=== PATIENT | female | born 1950 | race Caucasian/White ===

== ENCOUNTER → 2016-12-29 | Outpatient (CLI) | payer MEDICARE ==
[2016-12-29 13:02] LABS: Basophils # (A) 0.1 k/uL (0-0.2); Basophils % (A) 1 %; CHCM 33.3; Eosinophils # (A) 0.6 k/uL (0-0.7); Eosinophils % (A) 9 %; HCT 42.8 % (34.0-46.0); HDW 2.44; HGB 13.7 gm/dL (11.4-16.0); Luc # (Auto) 0.13; Luc % (Auto) 2; Lymphocytes # (A) 1.9 k/uL (1.0-4.8); Lymphocytes % (A) 32 %; MCV 87.4 fL (80.0-100.0); Mean Platelet Volume 6.9; Monocytes # (A) 0.4 k/uL (0-1.0); Monocytes % (A) 7 %; Neutrophils % (A) 49 %; RDW 13.4 % (11.5-15.5); WBC 6.1 k/uL (3.8-10.6); WBC (Perox) 6.27
[2016-12-29 13:12] LABS: ALT 30 U/L (9-52); AST 18 U/L (14-36); Alkaline Phosphatase 91 U/L (38-126); Anion Gap 11 mmol/L; Blood Urea Nitrogen 16 mg/dL (7-17); Calcium 9.7 mg/dL (8.4-10.2); Carbon Dioxide 29 mmol/L (22-30); Chloride 101 mmol/L (98-107); Glucose 95 mg/dL (74-99); Non-African American GFR(MDRD) >60 (>60 ml/min/1.73 sqM); Potassium 4.3 mmol/L (3.5-5.1); Sodium 141 mmol/L (137-145); Total Bilirubin 0.7 mg/dL (0.2-1.3); Total Protein 7.5 g/dL (6.3-8.2)
[2017-01-08 16:05] LABS: Mis test requested (Blood) Vanadium Level
== END | disposition home or self-care (01) ==
LOC: LABWHC1 12:13
PROVIDERS: ATTEND Internal Medicine Infectious Disease
DX: R78.79 Finding of abnormal level of heavy metals in blood (principal)
CPT/HCPCS: 36415; 80053; 83018; 85025

== ENCOUNTER → 2017-04-14 | Outpatient (CLI) | payer MEDICARE ==
[2017-04-14 12:02] LABS: Basophils # (A) 0.1 k/uL (0-0.2); Basophils % (A) 1 %; CH 28.5; Eosinophils # (A) 0.6 k/uL (0-0.7); Eosinophils % (A) 10 %; HDW 2.44; HGB 13.6 gm/dL (11.4-16.0); Luc # (Auto) 0.13; Luc % (Auto) 2; Lymphocytes # (A) 1.7 k/uL (1.0-4.8); Lymphocytes % (A) 29 %; MCH 28.6 pg (25.0-35.0); MCV 86.6 fL (80.0-100.0); Mean Platelet Volume 6.3; Monocytes # (A) 0.4 k/uL (0-1.0); Monocytes % (A) 7 %; Neutrophils # (A) 2.8 k/uL (1.3-7.7); Neutrophils % (A) 50 %; RBC 4.74 m/uL (3.80-5.40); WBC 5.7 k/uL (3.8-10.6); WBC (Perox) 5.45
[2017-04-14 12:26] LABS: Appearance,Urine Clear (Clear); Bilirubin,Urine Negative (Negative); Glucose,Urine (UA) Negative (Negative); Ketones,Urine Negative (Negative); Leukocyte Esterase,Urine Moderate (Negative); Mucus,Urine Rare /hpf; Nitrite,Urine Negative (Negative); PH, Urine 5.5 (5.0-8.0); Particle Count 2759; Protein,Urine Negative (Negative); RBC,Urine 2 /hpf (0-5); Specific Gravity,Urine 1.013 (1.001-1.035); UA Billing (MACRO vs. MICRO) MICRO; Urobilinogen,Urine <2.0 mg/dL (<2.0); WBC,Urine 5 /hpf (0-5)
[2017-04-14 12:31] LABS: Anion Gap 9 mmol/L; Carbon Dioxide 30 mmol/L (22-30); Chloride 106 mmol/L (98-107); Glucose 93 mg/dL (74-99); Non-African American GFR(MDRD) >60 (>60 ml/min/1.73 sqM); Potassium 4.5 mmol/L (3.5-5.1); Sodium 145 mmol/L (137-145); Total Protein 7.3 g/dL (6.3-8.2); Triglycerides 117 mg/dL (<150); Uric Acid 4.9 mg/dL (3.7-7.4)
[2017-04-14 12:32] LABS: ALT 33 U/L (9-52); AST 25 U/L (14-36); Alkaline Phosphatase 90 U/L (38-126); Blood Urea Nitrogen 17 mg/dL (7-17); C Reactive Protein 6.6 mg/L (<10.0); Creatine Kinase 39 U/L (30-135); Magnesium 2.1 mg/dL (1.6-2.3); Total Bilirubin 0.5 mg/dL (0.2-1.3)
[2017-04-14 13:12] LABS: Vitamin B12 524 pg/mL
[2017-04-14 15:02] LABS: Erythrocyte Sedimentation Rate 36 mm/hr (0-20)
[2017-04-14 16:23] LABS: LDL Cholesterol, Direct 214.3 mg/dL (0.0-129.0)
[2017-04-14 16:57] LABS: ANA w/Reflex to Titer NEGATIVE (NEGATIVE)
[2017-04-15 15:30] LABS: Mis test requested (Blood) Lyme Ab w/Reflex
== END | disposition home or self-care (01) ==
LOC: LABWHC1 11:21
PROVIDERS: ATTEND Family Medicine
DX: Z00.00 Encounter for general adult medical examination without abnormal findings (principal); R53.82 Chronic fatigue, unspecified; I10 Essential (primary) hypertension; E78.5 Hyperlipidemia, unspecified; T56 Toxic effect of metals
CPT/HCPCS: 36415; 80053; 81001; 82550; 82607; 83018; 83721; 83735; 84165; 84439; 84443; 84478; 84550; 85025; 85652; 86038; 86140; 86618

== ENCOUNTER → 2017-05-20 | Outpatient (CLI) | payer MEDICARE ==
--- NOTE | 2017-05-21 07:52 | MM ---
Reason for exam: screening (asymptomatic). Last mammogram was performed 1 year ago. History: Patient is postmenopausal. Family history of breast cancer in grandmother at age 60. 2 benign cyst aspirations of the left breast. Taking other hormone for 1 year. Physical Findings: A clinical breast exam by your physician is recommended on an annual basis and results should be correlated with mammographic findings. MG Screening Mammo w CAD Bilateral CC and MLO view(s) were taken. Prior study comparison: May 19, 2016, bilateral MG screening mammo w CAD. April 18, 2015, bilateral MG screening mammo w CAD. January 20, 2014, bilateral digital screening mammo w/CAD. There are scattered fibroglandular densities. There is no discrete abnormality. ASSESSMENT: Negative, BI-RAD 1 RECOMMENDATION: Routine screening mammogram of both breasts in 1 year.
== END | disposition home or self-care (01) ==
LOC: RADMAMWWP 12:59
PROVIDERS: ATTEND Family Medicine
DX: Z12.31 Encounter for screening mammogram for malignant neoplasm of breast (principal); M89.9 Disorder of bone, unspecified; Z78.0 Asymptomatic menopausal state

== ENCOUNTER → 2017-06-18 | Outpatient (CLI) | payer MEDICARE ==
--- NOTE | 2017-06-18 13:51 | BD ---
EXAMINATION TYPE: MG DEXA axial skeleton. DATE OF EXAM: 06/18/2017 COMPARISON: 09.08.2005 CLINICAL HISTORY: Z78.0 POST MENOPAUSAL W/O HRT Height: 62.5 Weight: 160 FRAX RISK QUESTIONS: Alcohol (3 or more units per day): NO Family History (Parent hip fracture): NO Glucocorticoids (More than 3mos): NO (Ex: prednisone, prednisolone, methylprednisolone, dexamethasone, and hydrocortisone). History of Fracture in Adulthood: NO Secondary Osteoporosis: NO 1. Type 1 Diabetes: NO 2. Hyperthyroidism: NO 3. Menopause before 45: YES 4. Malnutrition: NO 5. Chronic liver disease: NO Rheumatoid Arthritis: NO Current Tobacco Use: NO RISK FACTORS HISTORY OF: Family History of Osteoporosis: NO Active: YES Diet low in dairy products/other sources of calcium: YES, LOW, LACTOSE INTOLERANT Postmenopausal woman: HYST AT AGE 31 Lost more than 2 inches in height since high school: NO Hyperparathyroidism: NO Adrenal Insufficiency: NO MEDICATIONS: Thyroid Medications: YES SYNTHROID How Lon YRS Additional Medications: VITAMIN D, MULTI VIT WITH CALCIUM, BP MEDS, ZOLOFT, REFLUX MEDS, STATINS FOR CHOLESTEROL Additional History: RIGHT TKR, OSTEO ARTHRITIS EXAM MEASUREMENTS: Bone mineral densitometry was performed using the [employer] System. Bone mineral density as measured about the Lumbar spine is: ----- L1-L4(G/cm2): 1.063 T Score Values are as follows: ----- L1: -1.5 ----- L2: -1.8 ----- L3: -0.4 ----- L4: -0.7 ----- L1-L4: -1.0 Bone mineral density has: Decreased -10.7% since study of: 09.08.2005 Bone mineral density about the R hip (g/cm2): 0.910 Bone mineral density about the L hip (g/cm2): 0.970 T Score values are as follows: -----R Neck: -1.2 -----L Neck: -1.1 -----R Total: -0.8 -----L Total: -0.3 Bone mineral density has: Decreased -13.4% since study of: 09.08.2005 FRAX%'S: THERE IS A 8.5% CHANCE OF A MAJOR OSTEOPOROTIC FX AND A 0.8% CHANCE FOR HIP FX.....PROB ABILITY IN 10 YRS TIME IMPRESSION: Osteopenia (T Score between -2.5 and -1 as noted by T score values There is slightly increased risk of fracture and the patient may be considered for treatment. Re-Screen 2-5 years FOR BOTH OF HER HIPS AND LUMBAR SPINE. NOTE: T-SCORE=SD OF THE YOUNG ADULT MEAN.
== END | disposition home or self-care (01) ==
LOC: RADBDWWP 09:59
PROVIDERS: ATTEND Family Medicine
DX: M85.80 Other specified disorders of bone density and structure, unspecified site (principal); Z78.0 Asymptomatic menopausal state
CPT/HCPCS: 77080

== ENCOUNTER → 2017-09-17 | Outpatient (CLI) | payer MEDICARE ==
[2017-09-17 13:16] LABS: Basophils # (A) 0.1 k/uL (0-0.2); Basophils % (A) 1 %; CH 28.7; CHCM 32.7; Eosinophils # (A) 0.5 k/uL (0-0.7); Eosinophils % (A) 7 %; HCT 43.7 % (34.0-46.0); HDW 2.42; HGB 13.9 gm/dL (11.4-16.0); Luc # (Auto) 0.14; Luc % (Auto) 2; Lymphocytes % (A) 30 %; MCH 28.1 pg (25.0-35.0); MCHC 31.9 g/dL (31.0-37.0); MCV 87.9 fL (80.0-100.0); Mean Platelet Volume 6.4; Monocytes # (A) 0.5 k/uL (0-1.0); Monocytes % (A) 7 %; Neutrophils # (A) 3.7 k/uL (1.3-7.7); Neutrophils % (A) 53 %; RBC 4.97 m/uL (3.80-5.40); RDW 13.3 % (11.5-15.5); WBC 6.9 k/uL (3.8-10.6); WBC (Perox) 7.03
[2017-09-17 14:00] LABS: ALT 33 U/L (9-52); AST 21 U/L (14-36); Alkaline Phosphatase 81 U/L (38-126); Anion Gap 9 mmol/L; Blood Urea Nitrogen 20 mg/dL (7-17); C Reactive Protein 5.9 mg/L (<10.0); Calcium 10.2 mg/dL (8.4-10.2); Carbon Dioxide 30 mmol/L (22-30); Chloride 103 mmol/L (98-107); Cholesterol 204 mg/dL (<200); Creatine Kinase 47 U/L (30-135); Glucose 91 mg/dL (74-99); HDL Cholesterol 54 mg/dL (40-60); Non-African American GFR(MDRD) >60 (>60 ml/min/1.73 sqM); Potassium 4.7 mmol/L (3.5-5.1); Sodium 142 mmol/L (137-145); Total Bilirubin 0.5 mg/dL (0.2-1.3); Total Protein 7.7 g/dL (6.3-8.2)
[2017-09-17 15:26] LABS: Erythrocyte Sedimentation Rate 34 mm/hr (0-20)
[2017-09-22 13:36] LABS: Alternaria alternata IgE <0.35 kU/L (<0.35); Asperg. fumagatus IgE <0.35 kU/L (<0.35); Asperg. fumagatus IgE Class CLASS 0; Birch(Com.Silvr) IgE Class CLASS 0; Cat Epith & Dander IgE <0.35 kU/L (<0.35); Cat Epith & Dander IgE Class CLASS 0; Clad herbarum IgE <0.35 kU/L (<0.35); Clad herbarum IgE Class CLASS 0; Common Ragweed IgE Class CLASS 0; Dermato. Pteronyssinus Class CLASS 0; Dermato. Pteronyssinus IgE <0.35 kU/L (<0.35); Dermato. farinae IgE <0.35 kU/L (<0.35); Dermato. farinae IgE Class CLASS 0; IgE (Allergen) 67.9 IU/mL (<114.0); Maple (Box Elder) IgE <0.35 kU/L (<0.35); Maple (Box Elder) IgE Class CLASS 0; Mountain Cedar IgE <0.35 kU/L (<0.35); Mountain Cedar IgE Class CLASS 0; Mouse Urine IgE Class CLASS 0; Mouse Urine Proteins,IgE <0.35 kU/L (<0.35); Mulberry IgE Class CLASS 0; Nettle IgE <0.35 kU/L (<0.35); Nettle IgE Class CLASS 0; Oak IgE <0.35 kU/L (<0.35); Penicillium notatum IgE Class CLASS 0; Rough Marshelder IgE <0.35 kU/L (<0.35); Rough Marshelder IgE Class CLASS 0; Timothy Grass IgE <0.35 kU/L (<0.35); Timothy Grass IgE Class CLASS 0; White Ash IgE Class CLASS 0
[2017-09-23 15:07] LABS: Mis test requested (Blood) Vanadium Level
[2017-09-23 16:45] LABS: Alternaria Alternata IgG 7.2 mcg/mL (< 13.6); Cladosporium herbarium IgG 48.1 mcg/mL (< 14.7); Phoma ssp. IgG 11.2 mcg/mL (< 6.6); Saccaharomospora viridis Not detected (Not detected); Saccaharopoly. rectivirgula Not detected (Not detected)
== END ==
LOC: LABWHC1 12:17
PROVIDERS: ATTEND Family Medicine
DX: I10 Essential (primary) hypertension (principal); M94.0 Chondrocostal junction syndrome [Tietze]; R53.82 Chronic fatigue, unspecified; T56.89 Toxic effects of other metals
CPT/HCPCS: 36415; 80053; 80061; 82103; 82550; 82607; 82785; 83018; 83735; 84443; 85025; 85652; 86001; 86003; 86140; 86606; 86609

== ENCOUNTER → 2017-11-25 | Outpatient (CLI) | payer MEDICARE ==
--- NOTE | 2017-11-25 17:10 | XR ---
EXAMINATION TYPE: XR chest 2V DATE OF EXAM: 11/25/2017 COMPARISON: 01/17/2014 HISTORY: Chest pain TECHNIQUE: Frontal and lateral views of the chest are obtained. FINDINGS: There is no heart failure nor confluent pneumonic infiltrate. There are some coarsening of interstitial markings in the mid and lower lung pittman. There is no pleural effusion. Bony thorax is intact. IMPRESSION: Mild pulmonary fibrotic changes that have progressed compared to old exam. No heart fail ure.
== END | disposition home or self-care (01) ==
LOC: RADXRMAIN 16:30
PROVIDERS: ATTEND Family Medicine
DX: J84.10 Pulmonary fibrosis, unspecified (principal)
CPT/HCPCS: 71046

== ENCOUNTER → 2017-11-27 | Outpatient (CLI) | payer MEDICARE ==
--- NOTE | 2017-11-27 09:42 | CT ---
EXAMINATION TYPE: CT angio chest DATE OF EXAM: 11/27/2017 COMPARISON: 02/02/2014 HISTORY: 67-year-old female Cough, Lt sided chest pain TECHNIQUE: Contiguous axial scanning of the chest performed with IV Contrast, patient injected with 1 00 mL of Omnipaque 350. Coronal/sagittal MIP reconstructions performed. CT DLP: 212.3 mGycm Automated exposure control for dose reduction was used. FINDINGS: Heart is upper limits of normal in size with trace pericardial fluid. Aorta normal caliber with conventional arch vessel branching anatomy. No thoracic lymphadenopathy by CT size criteria. Satisfactory opacification of the pulmonary arterial system. Mild respiratory motion artifacts causin g some limitation. No evidence for pulmonary embolus within this limitation. Mild biapical pleural-parenchymal scarring. There is [id number] diffuse bronchial wall thickeni ng noted. Dependent atelectasis. No consolidation or pleural effusion. Visualized upper abdomen shows no gross abnormal mobility. Bones: Endplate spondylosis mid to lower thoracic spine. IMPRESSION: 1. NO EVIDENCE FOR PULMONARY EMBOLUS. 2. BORDERLINE CARDIOMEGALY. CORRELATE WITH PATIENT'S CARDIAC FUNCTION. 3. MILD TO MODERATE BRONCHIAL WALL THICKENING COULD REPRESENT BRONCHITIS OR CHRONIC ASTHMA.
== END | disposition home or self-care (01) ==
LOC: RADCTMAIN 08:59
PROVIDERS: ATTEND Family Medicine
DX: J98.09 Other diseases of bronchus, not elsewhere classified (principal); I51.7 Cardiomegaly; R09.1 Pleurisy; R06.02 Shortness of breath
CPT/HCPCS: 71275; Q9967

== ENCOUNTER → 2018-01-21 | Outpatient (CLI) | payer MEDICARE | END | disposition home or self-care (01) | LOC: LABWHC1 15:37 | PROVIDERS: ATTEND Internal Medicine Infectious Disease | DX: R79.0 Abnormal level of blood mineral (principal) | CPT/HCPCS: 36415 ==

== ENCOUNTER → 2018-11-22 | Outpatient (CLI) | payer MEDICARE | END | disposition home or self-care (01) | LOC: LABWHC1 14:14 | PROVIDERS: ATTEND Internal Medicine | DX: R78.79 Finding of abnormal level of heavy metals in blood (principal) | CPT/HCPCS: 36415 ==

== ENCOUNTER → 2019-01-24 | Outpatient (CLI) | payer MEDICARE ==
[2019-01-24 14:52] LABS: Anisocytosis Slight; Basophils % (A) 0 %; Eosinophils % (A) 0 %; HCT 41.6 % (34.0-46.0); HGB 13.4 gm/dL (11.4-16.0); Lymphocytes # (A) 1.8 k/uL (1.0-4.8); Lymphocytes % (A) 15 %; MCH 26.8 pg (25.0-35.0); MCHC 32.1 g/dL (31.0-37.0); MCV 83.4 fL (80.0-100.0); Mean Platelet Volume 6.8; Monocytes # (A) 0.6 k/uL (0-1.0); Monocytes % (A) 5 %; Neutrophils # (A) 9.5 k/uL (1.3-7.7); Neutrophils % (A) 79 %; Platelet Count 341 k/uL (150-450); RDW 16.9 % (11.5-15.5)
[2019-01-24 18:32] LABS: C Reactive Protein <0.4 mg/dL (0.0-0.8); Calcium 9.8 mg/dL (8.7-10.3); Chloride 105 mmol/L (96-109); Glucose 112 mg/dL (70-110); Potassium 4.1 mmol/L (3.5-5.5); Sodium 141 mmol/L (135-145)
[2019-01-24 19:02] LABS: Erythrocyte Sedimentation Rate 18 mm/hr (0-20)
[2019-01-24 19:38] LABS: Hemoglobin A1C 6.5 % (4.0-6.0)
== END | disposition home or self-care (01) ==
LOC: LABWHC1 14:17
PROVIDERS: ATTEND Family Medicine
DX: R73.01 Impaired fasting glucose (principal); I10 Essential (primary) hypertension; R51 Headache
CPT/HCPCS: 36415; 80048; 83036; 85025; 85652; 86140

== ENCOUNTER → 2019-04-27 | Outpatient (CLI) | payer MEDICARE ==
[2019-04-27 14:06] LABS: Basophils % (A) 0 %; Eosinophils % (A) 0 %; HCT 43.7 % (34.0-46.0); HGB 13.7 gm/dL (11.4-16.0); Lymphocytes # (A) 1.4 k/uL (1.0-4.8); Lymphocytes % (A) 16 %; MCH 28.6 pg (25.0-35.0); MCHC 31.4 g/dL (31.0-37.0); MCV 91.1 fL (80.0-100.0); Mean Platelet Volume 6.9; Monocytes # (A) 0.3 k/uL (0-1.0); Monocytes % (A) 3 %; Neutrophils % (A) 80 %; Platelet Count 355 k/uL (150-450); RBC 4.79 m/uL (3.80-5.40); WBC 8.7 k/uL (3.8-10.6)
[2019-04-27 15:14] LABS: Erythrocyte Sedimentation Rate 18 mm/hr (0-20)
[2019-04-27 19:51] LABS: Hemoglobin A1C 6.2 % (4.0-6.0)
[2019-04-27 19:56] LABS: ALT 38 U/L (8-44); AST 22 U/L (13-35); African American GFR (CKD) 76.1 (60.0-200.0); Albumin/Globulin Ratio 1.96 (1.60-3.17); Alkaline Phosphatase 73 U/L (41-126); BUN/Creat Ratio 18.89 Ratio (12.00-20.00); C Reactive Protein <0.4 mg/dL (0.0-0.8); Calcium 10.1 mg/dL (8.7-10.3); Carbon Dioxide 28.8 mmol/L (21.6-31.8); Chloride 105 mmol/L (96-109); Globulin 2.3 g/dL (1.6-3.3); Glucose 110 mg/dL (70-110); Potassium 4.9 mmol/L (3.5-5.5); Sodium 144 mmol/L (135-145); Total Bilirubin 0.5 mg/dL (0.3-1.2); Total Protein 6.8 g/dL (6.2-8.2)
== END | disposition home or self-care (01) ==
LOC: LABWHC1 12:21
PROVIDERS: ATTEND Family Medicine
DX: J45.901 Unspecified asthma with (acute) exacerbation (principal); R94.39 Abnormal result of other cardiovascular function study; R06.00 Dyspnea, unspecified; T56 Toxic effect of metals
CPT/HCPCS: 36415; 80053; 83036; 84439; 84443; 84484; 85025; 85652; 86140

== ENCOUNTER → 2019-07-06 | Outpatient (CLI) | payer MEDICARE ==
--- NOTE | 2019-07-07 10:45 | MM ---
Reason for exam: screening (asymptomatic). Last mammogram was performed 2 years and 2 months ago. History: Patient is postmenopausal. Family history of breast cancer in grandmother at age 60. 2 benign cyst aspirations of the left breast. Taking other hormone for 1 year. Physical Findings: A clinical breast exam by your physician is recommended on an annual basis and results should be correlated with mammographic findings. MG Screening Mammo w CAD Bilateral CC and MLO view(s) were taken. Prior study comparison: May 20, 2017, bilateral MG screening mammo w CAD. May 19, 2016, bilateral MG screening mammo w CAD. There are scattered fibroglandular densities. No suspicious abnormality. No significant changes when compared with prior studies. ASSESSMENT: Negative, BI-RAD 1 RECOMMENDATION: Routine screening mammogram of both breasts in 1 year.
== END | disposition home or self-care (01) ==
LOC: RADMAMWWP 15:57
PROVIDERS: ATTEND Family Medicine
DX: Z12.31 Encounter for screening mammogram for malignant neoplasm of breast (principal)
CPT/HCPCS: 77067

== ENCOUNTER → 2019-07-28 | Outpatient (CLI) | payer MEDICARE ==
--- NOTE | 2019-07-28 11:41 | BD ---
EXAMINATION TYPE: Axial Bone Density DATE OF EXAM: 07/28/2019 COMPARISON: NONE CLINICAL HISTORY: Height: 5 FT 2 1/2 IN Weight: 175 FRAX RISK QUESTIONS: Glucocorticoids (More than 3mos): YES (Ex: prednisone, prednisolone, methylprednisolone, dexamethasone, and hydrocortisone). History of Fracture in Adulthood: YES Secondary Osteoporosis: 3. Menopause before 45: YES RISK FACTORS HISTORY OF: Family History of Osteoporosis: YES Active: YES Postmenopausal woman: TOTAL HYST AGE 31 MEDICATIONS: Prednisone or other steroids: YES How Long: SINCE OCTOBER 2018 Additional Medications: PRENISONE, MONTELUKAST, PANTOPRAZOLE, LOSARTAN, SIMVASTATIN, FASENRA SHOT, NI TROSTAT, FUROSEMIDE, D3,PERFOROMIST, BUDESONIDE, ALBUTEROL Additional History: TEMPORALITIS NERVE DIAG OCT 2018 EXAM MEASUREMENTS: Bone mineral densitometry was performed using the [employer] System. Bone mineral density as measured about the Lumbar spine is: ----- L1-L4(G/cm2): 1.060 T Score Values are as follows: ----- L2: -1.6 ----- L3: -0.9 ----- L4: -0.2 ----- L1-L4: -1.0 Bone mineral density has: INCREASED 0.6 % since study of: 2016 Bone mineral density about the R hip (g/cm2): 0.841 Bone mineral density about the L hip (g/cm2): 0.869 T Score values are as follows: -----R Neck: -1.4 -----L Neck: -1.2 -----R Total: -1.1 -----L Total: -0.8 Bone mineral density has: DECREASED -5.2 % since study of: 2017 IMPRESSION: Findings compatible with osteopenia. NOTE: T-SCORE=SD OF THE YOUNG ADULT MEAN.
== END | disposition home or self-care (01) ==
LOC: RADBDWWP 11:05
PROVIDERS: ATTEND Family Medicine
DX: M89.9 Disorder of bone, unspecified (principal); Z79.52 Long term (current) use of systemic steroids
CPT/HCPCS: 77080

== ENCOUNTER → 2020-10-22 | Outpatient (CLI) | payer MEDICARE ==
--- NOTE | 2020-10-23 13:19 | MM ---
Reason for exam: screening (asymptomatic). Last mammogram was performed 1 year and 4 months ago. History: Patient is postmenopausal. Family history of breast cancer in grandmother at age 60. 2 benign cyst aspirations of the left breast. Taking other hormone for 1 year. Physical Findings: A clinical breast exam by your physician is recommended on an annual basis and results should be correlated with mammographic findings. MG Screening Mammo w CAD Bilateral CC and MLO view(s) were taken. Prior study comparison: July 06, 2019, bilateral MG screening mammo w CAD. May 20, 2017, bilateral MG screening mammo w CAD. No significant changes when compared with prior studies. ASSESSMENT: Benign, BI-RAD 2 RECOMMENDATION: Routine screening mammogram of both breasts in 1 year.
== END | disposition home or self-care (01) ==
LOC: RADMAMWWP 14:02
PROVIDERS: ATTEND Family Medicine
DX: Z12.31 Encounter for screening mammogram for malignant neoplasm of breast (principal); Z80.3 Family history of malignant neoplasm of breast
CPT/HCPCS: 77067

== ENCOUNTER 2021-01-03 08:58 | Day surgery (SDC) | payer MEDICARE ==
[2020-12-31 13:07] VITALS: BMI 31.5
[~2021-01-03 08:58] MED LIST: LACTATED RINGERS 1,000 ML IV SCH
[2021-01-03 09:14] VITALS: TEMP 98.3
[2021-01-03] MEDS ORDERED: MIDAZOLAM 2 MG/2 ML VIAL ONE (09:31)
[2021-01-03] MEDS ORDERED: fentaNYL (PF) 50 MCG/ML 2 ML AMP ONE (09:31)
--- NOTE | 2021-01-03 09:48 | P.PCN ---
Date of Procedure: 01/03/21 Description of Procedure: Procedure: Lumbar Puncture . Preoperative Diagnoses: rule out M.S Postoperative Diagnosis: rule out M.S Anesthesia: IV sedation with Versed, fentanyl and local Condition: stable. Complications: none. Description of the procedure: Patient was consented in the preoperative area we discussed the risks benefits and alternatives to the procedure. The patient was Brought the patient into the procedure room and she was placed in the left lateral decubitus position. The back was cleansed with ChloraPrep. The L3-L4 level was palpated. At that point lidocaine 1% was used to anesthetize the skin, total of 5 mL was used. A 22 gauge spinal needle was advanced until spinal fluid was aspirated through the needle and a three - way stop cock. Opening pressure was 14.. CSF was obtained and sent off to laboratory for examination. The closing pressure was 12. Band- Aid was placed after the procedure the patient was instructed to lay flat for the next few hours. The patient was discharged from the PACU in stable condition.
[2021-01-03] MEDS ORDERED: IV FLUID CONTINUATION 1,000 ML IV ONE (09:58)
[2021-01-03 10:01] VITALS: RESP 16
[2021-01-03 10:15] LABS: ALT 26 U/L (4-34); AST 25 U/L (14-36)
[2021-01-03 10:33] LABS: T4, Free (Free Thyroxine) 0.97 ng/dL (0.78-2.19)
[2021-01-03 11:13] VITALS: BP 113/66; PULSE 61
[2021-01-03 12:03] LABS: Glucose,CSF 56 mg/dL (40-70); Total Protein,CSF 65 mg/dL (12-60)
[2021-01-03 12:33] LABS: Appearance,CSF Clear
[2021-01-03 12:34] LABS: CSF Tube Number 4; CSF Tube Volume 2.2; Nucleated Cells, CSF 0 u/L (0-5); Red Blood Cell,CSF 0 u/L (0-10)
[2021-01-03 19:34] LABS: Anti-DNA, DS unit <1.0 IU/mL; Anti-Smith Ab Interp NEGATIVE (NEGATIVE); DNA Double-Stranded NEGATIVE (NEGATIVE)
[2021-01-04 00:27] LABS: Rheumatoid Factor, Qnt <4 IU/mL (0-15)
[2021-01-04 10:43] LABS: Angiotensin-1 Converting Enz. 33 U/L (8-52)
[2021-01-04 11:53] LABS: VDRL, Qualitative CSF Nonreactive (Nonreactive)
[2021-01-07 12:40] LABS: IgG - CSF 2.5 mg/dL (0.0 - 3.4); IgG/Albumin Index (CSF) 0.45 (0.00 - 0.77); Immunoglobulin G 837 mg/dL (700 - 1600)
== END 2021-01-03 11:17 | disposition home or self-care (01) ==
LOC: ORPAIN 08:58
PROVIDERS: ATTEND Hospitalist
DX: R53.1 Weakness (principal); Z91.048 Other nonmedicinal substance allergy status; Z91.09 Other allergy status, other than to drugs and biological substances
CPT/HCPCS: 62270; 82040; 82042; 82164; 82784; 82945; 83873; 83916; 84157; 84439; 84443; 84450; 84460; 86038; 86225; 86235; 86431; 86592; 86618; 87801; 88108; 89050

== ENCOUNTER → 2021-02-27 | Outpatient (CLI) | payer MEDICARE ==
[2021-02-27 11:06] VITALS: BP 161/100; PULSE 74; RESP 18; TEMP 98.4
--- NOTE | 2021-02-27 11:25 | P.PAINCN ---
History of Present Illness - Reason for Consult Consult date: 02/27/21 - History of Present Illness This is 70 years old female with a chronic history of severe neck pain and headaches started 2 years ago, she denies any initiating event and the symptom is constant, increases with activity, radiates from the base of the skull spelled the top, she was diagnosed with occipital neuralgia , and Annie Yi referred her to have bilateral occipital nerve block, patient denies, any visual changes she denies any motor or sensory deficit ,she denies any change in the bowel movement or urination, Past Medical History Past Medical History: CVA/TIA, Hyperlipidemia, Hypertension, Osteoarthritis (OA) Additional Past Medical History / Comment(s): received 1rst covid vaccine, kidney stones , temporal nerve problem History of Any Multi-Drug Resistant Organisms: None Reported Past Surgical History: Heart Catheterization, Hysterectomy, Joint Replacement, Orthopedic Surgery Additional Past Surgical History / Comment(s): left shoulder surgery, left thumb surgery, total right knee replacement,left temporal biopsy , colonoscopy, Past Anesthesia/Blood Transfusion Reactions: No Reported Reaction Past Psychological History: Anxiety Smoking Status: Never smoker Past Alcohol Use History: None Reported Past Drug Use History: None Reported - Past Family History Mother Family Medical History: Cancer Additional Family Medical History / Comment(s): kidney cancer Father Family Medical History: Cancer Medications and Allergies Home Medications Medication Instructions Recorded Confirmed Type Ascorbic Acid [Vitamin C] 500 mg PO DAILY 12/31/20 02/21/21 History Aspirin EC [Ecotrin Low Dose] 81 mg PO DAILY 12/31/20 02/21/21 History Cetirizine HCl [Zyrtec] 10 mg PO DAILY 12/31/20 02/21/21 History Cholecalciferol [Vitamin D3 (25 50 mcg PO DAILY 12/31/20 02/21/21 History Mcg = 1000 Iu)] Cyanocobalamin (Vitamin B-12) 1,200 mcg PO DAILY 12/31/20 02/21/21 History [Vitamin B-12] Escitalopram [Lexapro] 20 mg PO DAILY 12/31/20 02/21/21 History Ezetimibe [Zetia] 10 mg PO 1300 12/31/20 02/21/21 History Fasenra Unknown Dose 1 dose SQ Q60D 12/31/20 02/21/21 History Losartan [Cozaar] 50 mg PO DAILY 12/31/20 02/21/21 History Montelukast [Singulair] 10 mg PO DAILY 12/31/20 02/21/21 History Multivitamins, Thera [Multivitamin 1 tab PO DAILY 12/31/20 02/21/21 History (formulary)] Omalizumab [Xolair] 75 mg SQ Q60D 12/31/20 02/21/21 History [place]-3 Fatty Acids/Fish Oil [Fish 1 each PO DAILY 12/31/20 02/21/21 History Oil 1,000 mg Softgel] Omeprazole 40 mg PO 1800 12/31/20 02/21/21 History Vitamin E 400 unit PO DAILY 12/31/20 02/21/21 History predniSONE 10 mg PO DAILY 12/31/20 02/21/21 History Allergies Allergy/AdvReac Type Severity Reaction Status Date / Time adhesive tape Allergy Rash/Hives Verified 02/21/21 16:04 Iodine and Iodide Containing Allergy Rash/Hives Verified 02/21/21 16:04 Produc Physical Exam Vitals: Vital Signs Temp Pulse Resp BP Pulse Ox 02/27/21 11:02 98.4 F 74 18 161/100 96 Physical Examinations : -Constitutiona : Cooperative , not in acute distress . -HEENT : nech : supple , no Lymphadenopathy , normal thyroid size . : eyes : no ptosis , no icterus, no photophobia . - neurologic : Cranial nerve II to XII intact , no focal neurological deffecit . -psychatric : alert , oriented X 3 , appropriate affect , intact judgment and insight . -Lymphatic : no Lymphadenopathy . - musculoskeltal : Cervical Spine motor stregnth in the deltoid and biceps, normal right side , normal Left side motor stregnth biceps and the wrist extensors normal right side ,normal left side . motor stregnth in the triceps muscle . normal Right side , normal Left side deep tendon reflexes normal at the biceps , normal at Brachioradialis , normal at triceps. cervical facet loading test: Positive Bilaterally Severe tenderness over the occipital nerve location bilaterally L >R Lumber spine moter stegnth lower extremities ,thigh and legs 5/5 Right side , 5/5 Left side Assessment and Plan Plan: Assessment and plan=1-bilateral occipital neuralgia. 2-cervicogenic headache. Patient could benefit from bilateral greater occipital nerve block, procedure risk and benefits and alternatives discussed with the patient she agreed with proceeding Time with Patient: Greater than 30 PQRS Measure Charge Sheet Measure #130: Documentation of Current Meds in Medical Chart: Patient's medications documented in chart Measure #226: Tobacco Use: Screen & Cessation Intervention: Pt not a tobacco user Measure #111: Pneumonia Vaccination: Pneumococcal vaccine administered or previously received Measure #47: Advance Care Plan: Advance care planning discussed & documented, pt chose/unable to give Measure #412: Opioid Treatment Agreement: No documentation of signed opioid treatment agreement Measure #408: Opioid Therapy Follow-up Evaluation: Patient had NO f/u eval minimum every 3 months during opioid therapy Measure #317: Preventitive Care & Scrn High Bld Press & F/U: Pre-hypertensive or hypertensive BP documented, pt will f/u with PCP Measure #128: Body Mass Index (BMI) Screening & Follow-up: BMI documented ABOVE normal parameters - f/u documented Measure #131: Pain Assessment & Follow-up: Pain positive & plan documented, Follow-up scheduled Measure #431: Unhealthy Alcohol Use Preventative Care & Scrn: Patient not identified as an unhealthy alcohol user PQRS Narrative: Blood Pressure 161/100 Pain Intensity [Neck] 5 Scale Used Numeric (1 - 10) Hx Alcohol Use (MH) No Home Medications: Ambulatory Orders Ascorbic Acid [Vitamin C] 500 mg PO DAILY 12/31/20 Aspirin EC [Ecotrin Low Dose] 81 mg PO DAILY 12/31/20 Cetirizine HCl [Zyrtec] 10 mg PO DAILY 12/31/20 Cholecalciferol [Vitamin D3 (25 Mcg = 1000 Iu)] 50 mcg PO DAILY 12/31/20 Cyanocobalamin (Vitamin B-12) [Vitamin B-12] 1,200 mcg PO DAILY 12/31/20 Escitalopram [Lexapro] 20 mg PO DAILY 12/31/20 Ezetimibe [Zetia] 10 mg PO 1300 12/31/20 Fasenra Unknown Dose 1 dose SQ Q60D 12/31/20 Losartan [Cozaar] 50 mg PO DAILY 12/31/20 Montelukast [Singulair] 10 mg PO DAILY 12/31/20 Multivitamins, Thera [Multivitamin (formulary)] 1 tab PO DAILY 12/31/20 Omalizumab [Xolair] 75 mg SQ Q60D 12/31/20 [place]-3 Fatty Acids/Fish Oil [Fish Oil 1,000 mg Softgel] 1 each PO DAILY 12/31/20 Omeprazole 40 mg PO 1800 12/31/20 Vitamin E 400 unit PO DAILY 12/31/20 predniSONE 10 mg PO DAILY 12/31/20
== END ==
LOC: PNWHC3 10:45
PROVIDERS: ATTEND Specialist
DX: E78.5 Hyperlipidemia, unspecified (principal); I10 Essential (primary) hypertension; F41.9 Anxiety disorder, unspecified; M54.81 Occipital neuralgia; G44.89 Other headache syndrome
CPT/HCPCS: 99211

== ENCOUNTER 2021-03-19 07:28 | Day surgery (SDC) | payer MEDICARE ==
[2021-03-19] MEDS ORDERED: LACTATED RINGERS 1,000 ML IV SCH ×2 (07:30→08:15)
[2021-03-19 07:44] VITALS: TEMP 97.9
[2021-03-19] MEDS ORDERED: methylPREDNISolone ACETATE 40 MG/ML 1 ML VIAL ONE (08:09)
[2021-03-19] MEDS ORDERED: MIDAZOLAM 2 MG/2 ML VIAL ONE (08:09)
[2021-03-19] MEDS ORDERED: fentaNYL (PF) 50 MCG/ML 2 ML AMP ONE (08:09)
[2021-03-19] MEDS ORDERED: ROPIVACAINE 5MG/ML 20ML VIAL ONE (08:09)
[2021-03-19] MEDS ORDERED: IV FLUID CONTINUATION 1,000 ML IV ONE (08:25)
[2021-03-19 08:29] VITALS: PULSE 76
[2021-03-19 08:39] VITALS: BP 115/73; RESP 16
--- NOTE | 2021-03-19 10:46 | P.PCN ---
Date of Procedure: 03/19/21 Preoperative Diagnosis: Occipital neuralgia Postoperative Diagnosis: Occipital neuralgia Procedure(s) Performed: Bilateral greater occipital nerve block Anesthesia: MAC Surgeon: Penelope Martinez Estimated Blood Loss (ml): 0 IV fluids (ml): 100 Pathology: none sent Condition: stable Disposition: PACU Description of Procedure: Indications for Procedure: The patient has been suffering from chronic headache. Procedure and Findings: The patient was seen and examined and written informed consent was obtained after explaining the risks, benefits and alternative of the procedure to the patient. As per physician request for anxiety IV was started in the preoperative holding area for sedation. The patient was positioned in the sitting position with the head slightly flexed and forehead rested on a pillow. By palpation, the external occipital pro tuberance and mastoid process were identified and mid point in between was located. The target point for greater occipital nerve was just medial to the occipital artery pulsation. The skin preparation was done with ChloraPrep X1 and sterile technique was observed throughout the procedure. A 25-guage, 1.5 inch needle was used for the procedure. A 25-gauge 1.5 inch needle was placed vertically downward, bony contact was obtained, negative aspiration was confirmed and 5 ml solution was injected. The needle was redirected little medially and laterally in a fanning fashion and addition medication was injected after negative aspiration. An bed procedure repeated on the other side. For each greater occipital nerve 5 ml of block solution used. The block solution containing 0.5% preservative-free bupivacaine 9 mL +40 MG of Depo-Medrol. The needle was removed, needle puncture sites were cleaned and pressure was applied. The patient tolerated the procedure very well. Disposition: Patient transferred to recovery under stable conditions. Patient was given discharge instructions regarding any bleeding, infection, fever, worsening headaches recommended to call her pain clinic during regular hours, after hours patient recommended to go to the nearest emergency. Patient was examined routinely by RN before discharging home. Patient was given discharge instructions to follow up with pain clinic in 4 weeks duration.
== END 2021-03-19 08:55 | disposition home or self-care (01) ==
LOC: ORPAIN 07:28
DX: M54.81 Occipital neuralgia (principal); N95.9 Unspecified menopausal and perimenopausal disorder; I10 Essential (primary) hypertension; Z98.890 Other specified postprocedural states; Z91.048 Other nonmedicinal substance allergy status; Z91.09 Other allergy status, other than to drugs and biological substances
CPT/HCPCS: 64405; J2250; J1030; J3010; J2795

== ENCOUNTER → 2021-10-29 | Outpatient (CLI) | payer MEDICARE ==
--- NOTE | 2021-11-04 11:32 | MM ---
Reason for exam: screening (asymptomatic). Last mammogram was performed 1 year ago. History: Patient is postmenopausal. Family history of breast cancer in grandmother at age 60. 2 benign cyst aspirations of the left breast. Taking other hormone for 1 year. Physical Findings: A clinical breast exam by your physician is recommended on an annual basis and results should be correlated with mammographic findings. MG Screening Mammo w CAD Bilateral CC and MLO view(s) were taken. Prior study comparison: October 22, 2020, bilateral MG screening mammo w CAD. July 06, 2019, bilateral MG screening mammo w CAD. There are scattered fibroglandular densities. No significant changes when compared with prior studies. ASSESSMENT: Negative, BI-RAD 1 RECOMMENDATION: Routine screening mammogram of both breasts in 1 year.
== END | disposition home or self-care (01) ==
LOC: RADMAMWWP 11:22
PROVIDERS: ATTEND Family Medicine
DX: Z12.31 Encounter for screening mammogram for malignant neoplasm of breast (principal); Z78.0 Asymptomatic menopausal state; Z80.3 Family history of malignant neoplasm of breast
CPT/HCPCS: 77067

== ENCOUNTER → 2022-05-23 | Outpatient (CLI) | payer MEDICARE ==
--- NOTE | 2022-05-24 05:28 | MR ---
EXAMINATION TYPE: MR ankle LT wo con DATE OF EXAM: 05/23/2022 COMPARISON: None HISTORY: Multiplanar multi echo imaging of the left ankle with no contrast. Achilles tendon is intact. Plantar fascia is intact. There is some plantar calcaneal spurring. Medial and lateral flexor tendons of the ankle appear intact. Collateral ligaments appear intact. No eviden ce of a fracture. There is subtalar joint effusion. IMPRESSION: No evidence of ligament or tendon tear. Subtalar joint effusion consistent with some synovitis. Calca raul spurring.
== END | disposition home or self-care (01) ==
LOC: RADMRIMAIN 06:06
PROVIDERS: ATTEND Orthopaedic Surgery
DX: M77.32 Calcaneal spur, left foot (principal); M25.472 Effusion, left ankle

== ENCOUNTER → 2022-06-04 | Outpatient (CLI) | payer MEDICARE ==
--- NOTE | 2022-06-04 20:00 | XR ---
EXAMINATION TYPE: XR cervical spine comp DATE OF EXAM: 06/04/2022 COMPARISON: None HISTORY: Cervical disc disorder with myelopathy TECHNIQUE: 5 view cervical spine FINDINGS: Facet hypertrophy is present diffusely within the mid and lower cervical spine. There is fo raminal stenosis present at right C4-5. Severe foraminal stenosis present right C5-6 and moderate rig ht C6-7. Mild foraminal narrowing is present on the left C3-4, moderate foraminal narrowing is presen t C4-5 C5-6 and C6-7. Prevertebral space is normal. There is loss of disc height diffusely within the cervical spine. The g reatest loss of disc height is present at C6-7. Some posterior endplate spurring is present C6-7. Pos terior spinal lamellar line is intact. Odontoid on the submental vertex view appears normal. IMPRESSION: 1. Facet hypertrophy degenerative discs changes as above. 2. Severe foraminal stenosis present especially noted right C5-6.
== END | disposition home or self-care (01) ==
LOC: RADXRMAIN 13:29
PROVIDERS: ATTEND Family Medicine
DX: M50.323 Other cervical disc degeneration at C6-C7 level (principal); M99.71 Connective tissue and disc stenosis of intervertebral foramina of cervical region
CPT/HCPCS: 72050

== ENCOUNTER → 2022-10-10 | Outpatient (CLI) | payer MEDICARE ==
--- NOTE | 2022-10-11 04:29 | MR ---
EXAMINATION TYPE: MR shoulder RT wo con DATE OF EXAM: 10/10/2022 COMPARISON: None HISTORY: Right shoulder pain and limited range of movement for 3 months Multiplanar multiecho imaging of the right shoulder performed without contrast. There is moderate shoulder joint effusion. There is subdeltoid effusion. There is spurring at the gle nohumeral joint with joint space narrowing. There is evidence for at least partial tear of the biceps tendon. There is partial tear of the subsca pularis tendon near the attachment on the greater tuberosity. There is full-thickness tear of the supraspinatus tendon over the top of the humeral head with minima l retraction. There is spurring at the AC joint and subacromial impingement. There is subacromial charles nt space narrowing. The infraspinatus tendon is intact. IMPRESSION: There is a large full-thickness tear of the supraspinatus tendon with minimal retraction. Large joint effusion and subdeltoid effusion. Partial tear of the biceps tendon and the subscapularis tendon.
== END | disposition home or self-care (01) ==
LOC: RADMRIMAIN 19:10
PROVIDERS: ATTEND Orthopaedic Surgery
DX: M75.111 Incomplete rotator cuff tear or rupture of right shoulder, not specified as traumatic (principal); M25.411 Effusion, right shoulder

== ENCOUNTER → 2022-11-19 | Outpatient (CLI) | payer MEDICARE ==
--- NOTE | 2022-11-20 20:06 | MM ---
Reason for Exam: Screening (asymptomatic). Last mammogram was performed 1 year(s) and 1 month(s) ago. Patient History: Menarche at age 12. First Full-Term at age 19. Hysterectomy at age 30. Postmenopausal. Benign Cyst Aspiration on the left side. Benign Cyst Aspiration on the left side. Paternal grandmother had breast cancer, age 60. Risk Values: Taya 5 year model risk: 1.4%. NCI Lifetime model risk: 3.8%. Prior Study Comparison: 07/06/2019 Bilateral Screening Mammogram, [facility]. 10/22/2020 Bilateral Screening Mammogram, [facility]. 10/29/2021 Bilateral Screening Mammogram, [facility]. Tissue Density: There are scattered fibroglandular densities. Findings: Analyzed By CAD. There is no suspicious group of microcalcifications or new suspicious mass in either breast. Overall Assessment: Negative, BI-RAD 1 Management: Screening Mammogram of both breasts in 1 year. 1. Patient should continue monthly self breast exams. 2. A clinical breast exam by your physician is recommended on an annual basis. 3. This exam should not preclude additional follow-up of suspicious palpable abnormalities. Electronically signed and approved by: Fermin Rainey M.D. Radiologist
== END | disposition home or self-care (01) ==
LOC: RADMAMWWP 15:18
PROVIDERS: ATTEND Family Medicine
DX: Z12.31 Encounter for screening mammogram for malignant neoplasm of breast (principal); Z78.0 Asymptomatic menopausal state; Z80.3 Family history of malignant neoplasm of breast
CPT/HCPCS: 77067

== ENCOUNTER → 2023-12-09 | Outpatient (CLI) | payer MEDICARE ==
--- NOTE | 2023-12-10 08:56 | MM ---
Reason for Exam: Screening (asymptomatic). Last screening mammogram was performed 12 month(s) ago. Patient History: Menarche at age 12. First Full-Term at age 19. Hysterectomy at age 30. Postmenopausal. Benign Cyst Aspiration on the left side. Benign Cyst Aspiration on the left side. Paternal grandmother had breast cancer, age 60. Risk Values: Taya 5 year model risk: 1.4%. NCI Lifetime model risk: 3.6%. Prior Study Comparison: 10/22/2020 Bilateral Screening Mammogram, [facility]. 10/29/2021 Bilateral Screening Mammogram, [facility]. 11/19/2022 Bilateral MG screening mammo w CAD, [facility]. Tissue Density: There are scattered fibroglandular densities. Findings: Analyzed By CAD. There is no suspicious group of microcalcifications or new suspicious mass. Overall Assessment: Negative, BI-RAD 1 Management: Screening Mammogram of both breasts in [address] [facility] will attempt to contact patient to return for supplemental views and ultrasound if indicated. Patient should continue monthly self-breast exams. A clinical breast exam by your physician is recommended on an annual basis. This exam should not preclude additional follow-up of suspicious palpable abnormalities. Note on Taya scores and lifetime risk: 1. A Taya score greater than 3% is considered moderate risk. If this is the case, consider specialist referral to assess eligibility for a risk reducing agent. 2. If overall lifetime risk for the development of breast cancer is 20% or higher, the patient may qualify for future screening with alternating mammogram and breast MRI. Electronically signed and approved by: Bryant Kapoor DO
== END | disposition home or self-care (01) ==
LOC: RADMAMWWP 15:55
PROVIDERS: ATTEND Family Medicine
DX: Z12.31 Encounter for screening mammogram for malignant neoplasm of breast (principal); Z80.3 Family history of malignant neoplasm of breast; Z78.0 Asymptomatic menopausal state
CPT/HCPCS: 77067

== ENCOUNTER 2024-10-24 08:15 | Day surgery (SDC) | payer MEDICARE ==
[~2024-10-24 08:15] MED LIST changes: -LACTATED RINGERS 1,000 ML IV SCH; +SODIUM CHLORIDE 0.9% 1,000 ML IV SCH
[2024-10-24 08:54] VITALS: BP 145/70; PULSE 67; RESP 16; TEMP 98.2
[2024-10-24] MEDS: SODIUM CHLORIDE 0.9% 500 ML 500 ML IV SCH (08:55)
[2024-10-24] MEDS: IV FLUID CONTINUATION 1,000 ML IV ONE (10:17)
--- NOTE | 2024-10-24 16:32 | P.EPPROC ---
- EP Procedure Note Electrophysiology Procedure Note: Diagnosis Syncope Twelve-lead EKG shows sinus rhythm normal W[place] narrow QRS normal QT interval Tilt table test per protocol Baseline blood pressure 143/66 mmHg baseline heart rate 66 beats minute Patient was tilted upright in angle of 70 degrees per protocol There was an immediate drop in the blood pressure. 15 mmHg drop in systolic blood pressure Following that there was a gradual decline in blood pressure down to 75 mmHg. The patient felt hot and nauseated and was then laid supine. When she was laid supine her blood pressure normalized Impression Normal twelve-lead EKG Orthostatic hypotension syndrome, symptomatic
== END 2024-10-24 12:01 | disposition home or self-care (01) ==
LOC: CATHEP 08:15
PROVIDERS: ATTEND Internal Medicine Clinical Cardiac Electrophysiology
DX: I95.1 Orthostatic hypotension (principal); M31.5 Giant cell arteritis with polymyalgia rheumatica; M48.061 Spinal stenosis, lumbar region without neurogenic claudication
CPT/HCPCS: 93660

== ENCOUNTER → 2024-10-31 | Outpatient (CLI) | payer MEDICARE ==
[2024-10-31 17:28] LABS: African American GFR (CKD) >90 (>60 ml/min/1.73 sqM); Blood Urea Nitrogen 23 mg/dL (7-17); Non-African American GFR(CKD) 88 (>60 ml/min/1.73 sqM)
--- NOTE | 2024-10-31 17:49 | US ---
EXAMINATION TYPE: US carotid duplex BILAT DATE OF EXAM: 10/31/2024 COMPARISON: NONE CLINICAL INDICATION: Female, 74 years old with history of MASS AND LUMP, NECK R55; Additional History: .... TECHNIQUE: Grayscale, color Doppler and spectral Doppler evaluation of the bilateral carotid systems and vertebral arteries. Indirect Doppler criteria was utilized. FINDINGS: EXAM MEASUREMENTS: RIGHT: Peak Systolic Velocity (PSV) cm/sec ----- Right CCA: 109 ----- Right ICA: 94.6 ----- Right ECA: 129 ICA/CCA ratio: 0.9 RIGHT: End Diastole cm/sec ----- Right CCA: 16.2 ----- Right ICA: 20.0 ----- Right ECA: 7.8 LEFT: Peak Systolic Velocity (PSV) cm/sec ----- Left CCA: 87.2 ----- Left ICA: 70.9 ----- Left ECA: 158 ICA/CCA ratio: 0.8 LEFT: End Diastole cm/sec ----- Left CCA: 12.4 ----- Left ICA: 18.5 ----- Left ECA: 14.8 VERTEBRALS (direction of flow): Right Vertebral: Antegrade Left Vertebral: Antegrade Rhythm: Normal LACQUER MIXER NOTES: Slightly elevated velocities at Rt ICA, Lt CCA Prox & Lt ECA No significant stenosis or plaque seen bilaterally Color Doppler imaging shows patency with blood flow throughout the carotid artery. Spectral waveforms are within normal limits. IMPRESSION: No ultrasound evidence for hemodynamically significant stenosis of bilateral internal carotid arterie s. Criteria for Assigning % of Stenosis / Diameter reduction (Estimation based on the indirect measurements of the internal carotid artery velocities (ICA PSV). 1. Normal (no stenosis)=ICA PSV < 125 cm/s: ratio < 2.0: ICA EDV<40 cm/s. 2. Less than 50% stenosis=ICA PSV < 125 cm/s: ratio < 2.0: ICA EDV<40 cm/s. 3. 50 to 69% stenosis=ICA PSV of 125 to 230 cm/s: ration 2.0 ? 4.0: ICA EDV 40-100 cm/s. 4. Greater than 70% stenosis to near occlusion= ICA PSV > 230 cm/s: ratio > 4.0: ICA EDV > 100 cm/s. 5. Near occlusion= ICA PSV velocities may be low or undetectable: variable ratio and ICA EDV. 6. Total occlusion=unable to detect flow. [facility], , 10/31/2024 5:47 PM
--- NOTE | 2024-11-01 14:59 | CT ---
EXAMINATION TYPE: CT soft tissue neck w con DATE OF EXAM: 10/31/2024 6:27 PM COMPARISON: None. CLINICAL INDICATION: Female, 74 years old with history of R22.1; PHH, lump to left side of neck TECHNIQUE: Standard enhanced CT of the neck. Axial sections with coronal and sagittal reformats were obtained. Contrast used:100 mL of Isovue 300 with IV Contrast, (None if empty) Oral contrast used: (None if empty) CT DLP: 334.6 mGycm, Automated exposure control for dose reduction was used. FINDINGS: Brain: Visualized portions are grossly unremarkable. Orbits: Unremarkable Sinuses: Grossly unremarkable. Spaces of the neck: Clear and symmetric. Area of palpable abnormality demonstrates no suspicious mass es. There is a few prominent subcutaneous vessels in this region. No lymphadenopathy present. Musculoskeletal: No acute osseous pathology. Lymph nodes: Multiple nonenlarged lymph nodes are seen along both anterior chains of the neck. Vascular structures: Visualized major arteries are patent without evidence of aneurysm. Enlarged righ t internal jugular vein compared to left. Thoracic Inlet/airway: Airway is patent. The lung apices are clear. Soft tissues/Thyroid: Thyroid and remainder of the soft tissues are unremarkable. Other: none. IMPRESSION: Left neck palpable marker correlates with some prominent subcutaneous changes vessels. No adenopathy or suspicious mass visualized. Patulous right internal jugular vein compared to the left. [facility], , 11/01/2024 2:56 PM
== END | disposition home or self-care (01) ==
LOC: RADUSWWP 15:34
PROVIDERS: ATTEND Family Medicine
DX: R22.1 Localized swelling, mass and lump, neck (principal); R55 Syncope and collapse
CPT/HCPCS: 82565; 84520; 93880; 70491; 36415; Q9967

== ENCOUNTER → 2025-02-24 | Outpatient (CLI) | payer MEDICARE ==
[2025-02-24 14:53] LABS: African American GFR (CKD) >90 (>60 ml/min/1.73 sqM); Blood Urea Nitrogen 26 mg/dL (7-17); Non-African American GFR(CKD) >90 (>60 ml/min/1.73 sqM)
--- NOTE | 2025-02-24 16:30 | CT ---
CT urogram HISTORY: Hematuria COMPARISON: None TECHNIQUE: Multiple axial images are obtained through the abdomen and pelvis before and after the une ventful administration of nonionic IV contrast. Postcontrast delayed images were obtained. FINDINGS: Lung bases are clear. On the pre-IV contrast images, there are no renal calcifications or ureteral calcifications. There are multiple gallstones but no gallbladder distention, wall thickening or pericholecystic fluid There are no focal masses within the liver, pancreas, spleen or adrenal glands and there is no organo megaly. Kidneys excrete contrast promptly and symmetrically and there is no solid renal mass, hydronephrosis or filling defect within the renal collecting systems, ureters or urinary bladder. The bowel loops are normal in caliber and there is no dilatation or obstruction. No inflammatory hernandez ges are identified in the bowel wall or mesentery. There is no free intraperitoneal air or fluid. There is no pelvic mass, free fluid, abscess or adenopathy. The osseous structures are intact. IMPRESSION: 1. No solid renal mass, renal calcification, hydronephrosis or filling defect within the collecting s ystems, ureter or urinary bladder. 2. Cholelithiasis. [facility], Workstation: [facility], 02/24/2025 4:28 PM
== END | disposition home or self-care (01) ==
LOC: RADCTMAIN 14:13
PROVIDERS: ATTEND Family Medicine
DX: K80.20 Calculus of gallbladder without cholecystitis without obstruction (principal); R31.29 Other microscopic hematuria
CPT/HCPCS: 82565; 84520; 74178; 36415; 74400; Q9967

== ENCOUNTER → 2025-06-05 | Outpatient (CLI) | payer MEDICARE ==
--- NOTE | 2025-06-06 07:17 | MR ---
INDICATION: Patient age:Female; 75 years old; Reason for study: M31.6, R55, R51.9; [facility]. COMPARISON: None. TECHNIQUE: Multi planar, multi sequence imaging was performed through the brain. The patient was then given 7.5 cc of Gadobutrol intravenously and multi planar, T1 fat-saturation images were obtained. FINDINGS: The blanton-white junctions, ventricular system, basal cisterns appear unremarkable. Age-appropriate mil d cerebral volume loss. Diffusion-weighted imaging shows no evidence of restricted diffusion to sugge st acute/subacute infarct. Intracranial arterial flow voids are maintained. Midline structures show n o abnormality. Patchy areas of high T2/FLAIR signal intensity are seen within the periventricular and subcortical white matter. Example includes a posterior left parietal subcortical 2.1 x 0.7 cm lesion (series 601, image 20). And a right frontal lobe periventricular 1.4 x 0.8 cm lesion (series 601, im age 20). The susceptibility weighted images do not reveal any evidence for micro-hemorrhage. After ad ministration of gadolinium, no abnormal enhancement is seen. The bone marrow signal is within normal limits. Bilateral aphakia. Mild scattered paranasal sinus mu cosal thickening. IMPRESSION: 1. No evidence of intracranial mass, acute/subacute infarct, or abnormal enhancement. 2. Nonspecific nonenhancing white matter changes, likely related to small vessel ischemic disease. De myelinating disease, chronic migraines, vasculitis, Lyme disease are other considerations. [facility], , 06/06/2025 7:14 AM
== END | disposition home or self-care (01) ==
LOC: RADMRIMAIN 21:00
PROVIDERS: ATTEND Psychiatry & Neurology Neurology
DX: G43.909 Migraine, unspecified, not intractable, without status migrainosus (principal); G37.9 Demyelinating disease of central nervous system, unspecified; M31.6 Other giant cell arteritis
CPT/HCPCS: 70553; A9585

== ENCOUNTER 2025-06-07 10:25 | Day surgery (SDC) | payer MEDICARE ==
[2025-06-02 10:48] VITALS: BMI 28.7
[~2025-06-07 10:25] MED LIST changes: +LIDOCAINE 1% (10MG/ML) FOR IV START INTRADERMA PRN; -SODIUM CHLORIDE 0.9% 1,000 ML IV SCH
[2025-06-07] MEDS: IV FLUID CONTINUATION 1,000 ML IV ONE ×2 (11:23→12:27)
[2025-06-07 11:36] VITALS: TEMP 99.6
[2025-06-07 11:44] LABS: Glucose,Whole Blood 101 mg/dL (70-110)
[2025-06-07] MEDS: LACTATED RINGERS 1,000 ML IV SCH (11:46)
[2025-06-07] MEDS ORDERED: LIDOCAINE 1% INJ 10MG/ML (20 ML MDV) ONE (12:28)
[2025-06-07] MEDS ORDERED: PROPOFOL 10 MG/ML 20 ML VIAL IV ONE (12:28)
--- NOTE | 2025-06-07 12:49 | P.PCN ---
Date of Procedure: 06/07/25 Procedure(s) Performed: BRIEF HISTORY: Patient is a 75-year-old pleasant white female scheduled for an elective colonoscopy as a part of screening for colon cancer in family history of colon cancer diagnosed in her father at age 68. PROCEDURE PERFORMED: Colonoscopy with snare polypectomy and Endo Clip placement. PREOPERATIVE DIAGNOSIS: Screening for colon cancer and family history of colon cancer. IV sedation per Anesthesia. PROCEDURE: After informed consent was obtained, the patient, was brought into the endoscopy unit. IV sedation was administered by Anesthesia under continuous monitoring. Digital rectal examination was normal. Initially the Olympus CF-160 flexible video colonoscope was then inserted in the rectum, gradually advanced into the cecum without any difficulty. Careful examination was performed as the scope was gradually being withdrawn. Ileocecal valve and the appendiceal orifice were visualized and appeared normal. Prep was excellent. Mucosa of the cecum, ascending colon appeared normal. In the hepatic flexure there was a 7 mm polyp that was removed by hot snare polypectomy. In the transverse colon there was a 1 cm polyp that was removed by hot snare polypectomy followed by snare was some bleeding identified and hence an Endo Clip was placed and good hemostasis was achieved. In the descending colon there was a 6 mm polyp removed by hot snare polypectomy. Rest of the, transverse colon, descending colon, sigmoid colon, and rectum appeared normal. Retroflexion was performed in the rectum and no lesions were seen. The patient tolerated the procedure well. IMPRESSION: 7 mm hepatic flexure polyp status post hot snare polypectomy 1 cm transverse colon polyp status post hot snare polypectomy 6 mm descending colon polyp status post hot snare polypectomy RECOMMENDATIONS: Findings of this examination were discussed with the patient as well as her family. She was advised to follow-up with the biopsy results. If the biopsy reveals adenoma she can have repeat colonoscopy in 3 years..
[2025-06-07 12:57] VITALS: PULSE 63
[2025-06-07 13:09] VITALS: BP 123/64; RESP 16
== END 2025-06-07 13:22 | disposition home or self-care (01) ==
LOC: ORWHC2ENDO 10:25
PROVIDERS: ATTEND Internal Medicine Gastroenterology
DX: Z12.11 Encounter for screening for malignant neoplasm of colon (principal); K51.40 Inflammatory polyps of colon without complications; D12.3 Benign neoplasm of transverse colon; D12.4 Benign neoplasm of descending colon; I10 Essential (primary) hypertension; E11.9 Type 2 diabetes mellitus without complications; E78.5 Hyperlipidemia, unspecified; M31.6 Other giant cell arteritis; J45.909 Unspecified asthma, uncomplicated; F41.9 Anxiety disorder, unspecified; K21.9 Gastro-esophageal reflux disease without esophagitis; Z79.52 Long term (current) use of systemic steroids; Z79.82 Long term (current) use of aspirin; Z79.899 Other long term (current) drug therapy; Z86.73 Personal history of transient ischemic attack (TIA), and cerebral infarction without residual deficits; Z80.0 Family history of malignant neoplasm of digestive organs
CPT/HCPCS: 88305; 45385; J2003; J2704